=== PATIENT | male | born 1950 | race Caucasian/White ===

== ENCOUNTER 2021-03-17 05:55 | Day surgery (SDC) | payer MEDICARE, MEDICAID ==
[2021-03-16 12:49] LABS: COVID AG,FIA SOURCE NASOPHARYNGEAL
[~2021-03-17] VITALS: Ht 172.7 cm; Wt 73.2 kg
[2021-03-17] MEDS ORDERED: SODIUM CHLORIDE 0.9% 1,000 ML ONE (06:01)
[2021-03-17] MEDS: SODIUM CHLORIDE 0.9% 1,000 ML IV ONE (07:07)
[2021-03-17] MEDS ORDERED: FentaNYL CITRATE PF 100 MCG/2 ML VIAL ONE (07:26)
[2021-03-17] MEDS ORDERED: MIDAZOLAM HCL 5 MG/ML VIAL ONE (07:26)
[2021-03-17] MEDS ORDERED: MethylPREDNISolone SOD SUCC 125 MG/2 ML VIAL ONE (09:18)
[2021-03-17] MEDS: MethylPREDNISolone SOD SUCC 125 MG/2 ML VIAL IVP ONE (09:19)
[2021-03-17] MEDS ORDERED: OXYGEN THERAPY IH SCH (20:00)
== END 2021-03-17 10:30 | disposition home or self-care (01) ==
LOC: SURGERY 05:55
PROVIDERS: ATTEND Internal Medicine Critical Care Medicine
DX: J38.4 Edema of larynx (principal); B37.0 Candidal stomatitis; J44.9 Chronic obstructive pulmonary disease, unspecified; Z87.01 Personal history of pneumonia (recurrent); I10 Essential (primary) hypertension; Z79.899 Other long term (current) drug therapy
CPT/HCPCS: 31623; 31624; 71045; 87015; 87070; 87101; 87205; 87206; 87220; 87426; 88108; 88184; 88185; 88312; C9803; J2250; J2930; J3010; J7030